=== PATIENT | male | born 1940 | race Caucasian/White ===

== ENCOUNTER 2017-10-11 17:16 | Emergency (ER) | payer OTHER ==
--- OUTSIDE RECORDS SUMMARY | 2017-10-11 17:18 | XMS REPORT | Clinical Summary ---
:1940 Author Organization [facility] Address [address] [place] [address] Care Team Providers Name Role Phone Asked, No Pcp Primary Care Provider Unavailable Allergies Not on File Current Medications Not on file Active Problems Not on file Encounters Date Type Specialty Care Team Description 12/28/2016 Hospital Encounter Radiology Leonidas Francis MD Cough 12/28/2016 Transcribe Orders Access Leonidas Francis MD Cough (Primary Dx ) after 10/10/2016 Social History Tobacco Use Types Packs/Day Years Used Date Never Assessed Sex Assigned at Date Recorded Not on file Last Filed Vital Signs Not on file Plan of Treatment Health Maintenance Due Date Last Done Comments SHINGRIX VACCINE (#1) 1989 ZOSTER VACCINE 1999 PNEUMOCOCCAL POLYSACCHARIDE VACCINE AGE 65 AND OVER 01/07/2004 PNEUMOCOCCAL-13 01/07/2004 INFLUENZA VACCINE 11/10/2017 Procedures Procedure Name Priority Date/Time Associated Diagnosis Comments CT CHEST WO Routine 12/28/2016 11:44 AM Cough Results for this CONTRAST CDT procedure are in the results section. after 10/10/[address] Chest Wo Contrast (12/28/2016 11:44 AM) Narrative Performed At EXAMINATION: RADIANT CT CHEST WO CONTRAST CLINICAL HISTORY: R05 Cough, cough TECHNIQUE: Multiple axial images of the chest were obtained without intravenous contrast. The lack of intravenous contrast reduces the sensitivity of detecting solid organ disease and evaluating vasculature. Sagittal and coronal computerized reformatted images were also obtained. COMPARISON: 11/18/2015 IMPRESSION: Patent central airways. 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 Minimal traction bronchiectasis within lung bases. No significant honeycombing. A few scattered areas of tree-in-bud nodularity may reflect small airways inflammation within the peripheral lung carty. Subtle mosaic attenuation suggests areas of mild air trapping. No consolidation. No pleural effusion or pneumothorax. Calcified granuloma within the left upper lobe. Visualized thyroid is unremarkable. No significant supraclavicular, axillary adenopathy. Mildly prominent mediastinal lymph nodes are stable. Main pulmonary artery and aorta demonstrate a normal caliber. Dense coronary artery calcifications. Patulous distal esophagus. Limited evaluation of the visualized upper abdomen is within normal limits. Osseous degenerative changes. Left humeral anchor screws. [facility]-[id number] Procedure Note Interface, Radiology Results Incoming - 12/28/2016 12:01 PM CDT EXAMINATION: CT CHEST WO CONTRAST CLINICAL HISTORY: R05 Cough, cough TECHNIQUE: Multiple axial images of the chest were obtained without intravenous contrast. The lack of intravenous contrast reduces the sensitivity of detecting solid organ disease and evaluating vasculature. Sagittal and coronal computerized reformatted images were also obtained. COMPARISON: 11/18/2015 IMPRESSION: Patent central airways. 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 Minimal traction bronchiectasis within lung bases. No significant honeycombing. A few scattered areas of tree-in-bud nodularity may reflect small airways inflammation within the peripheral lung carty. Subtle mosaic attenuation suggests areas of mild air trapping. No consolidation. No pleural effusion or pneumothorax. Calcified granuloma within the left upper lobe. Visualized thyroid is unremarkable. No significant supraclavicular, axillary adenopathy. Mildly prominent mediastinal lymph nodes are stable. Main pulmonary artery and aorta demonstrate a normal caliber. Dense coronary artery calcifications. Patulous distal esophagus. Limited evaluation of the visualized upper abdomen is within normal limits. Osseous degenerative changes. Left humeral anchor screws. [facility]-[id number] Performing Organization Address City/State/Zipcode Phone Number [facility] [address] [place] [address] after 10/10/2016 Insurance Payer Benefit Plan / Group Subscriber ID Type Phone Address AETNA MEDICARE AETNA MEDICARE HMO/PPO [facility] xxxxxxxx HMO y [phone] [id number]
[2017-10-11] MEDS ORDERED: LIDOCAINE 1% MPF 5 ML VIAL ONE (17:50)
--- NOTE | 2017-10-11 18:08 | ER ---
Nurse's Notes [facility] Name: Kartik Akhtar Age: 77 yrs Sex: Male : 1940 Arrival Date: 10/11/2017 Time: 17:19 Bed 30 Private MD: Chad Gray C Diagnosis: Laceration without foreign body of forearm Presentation: 10/11 17:19 Presenting complaint: Patient states: i was fixing the water pump and hurt my R arm, it hj happened around 4:30 pm today; it was bleeding pretty good;. Transition of care: patient was not received from another setting of care. Complicating Factors: There are no complicating factors for this patient. Onset of symptoms was October 11, 2017. Risk Assessment: Do you want to hurt yourself or someone else? Patient reports no desire to harm self or others. Initial Sepsis Screen: Does the patient meet any 2 criteria? No. Patient's initial sepsis screen is negative. Does the patient have a suspected source of infection? No. Patient's initial sepsis screen is negative. Care prior to arrival: None. 17:19 Method Of Arrival: Ambulatory 17:19 Acuity: SUPA 4 hj Triage Assessment: 17:23 General: Appears in no apparent distress. uncomfortable, Behavior is calm, cooperative, hj appropriate for age. Pain: Complains of pain in right arm. Injury Description: Laceration sustained to right antecubital area is was sustained 1-2 hours ago. is bleeding. Historical: - Allergies: 17:23 tdap vaccine; hj - Home Meds: 17:23 atorvastatin Oral [Active]; gabapentin Oral [Active]; Ofev oral oral [Active]; Esbriet hj oral oral [Active]; Fish Oil oral oral [Active]; Tricor Oral [Active]; aspirin 81 mg Oral chew 1 tab once daily [Active]; - PMHx: 17:23 High Cholesterol; neuropathy; hj - PSHx: 17:23 cataract; bilateral rotator cuffs; hj - Immunization history:: Adult Immunizations up to date. - Social history:: Smoking status: Patient/guardian denies using tobacco, Patient/guardian denies using alcohol. - Ebola Screening: : Patient negative for fever greater than or equal to 101.5 degrees Fahrenheit, and additional compatible Ebola Virus Disease symptoms Patient denies exposure to infectious person Patient denies travel to an Ebola-affected area in the 21 days before illness onset. Screenin:23 Abuse screen: Denies threats or abuse. Denies injuries from another. Nutritional hj screening: No deficits noted. Tuberculosis screening: No symptoms or risk factors identified. Fall Risk None identified. Assessment: 17:24 Musculoskeletal: Reports pain in right antecubital area. hj 17:58 General: Appears in no apparent distress. comfortable, slender, well groomed, well tl3 developed, well nourished, Behavior is calm, cooperative, appropriate for age. Pain: Denies pain. Neuro: Level of Consciousness is awake, alert, obeys commands, Oriented to person, place, time, situation, Appropriate for age. Cardiovascular: Patient's skin is warm and dry. Respiratory: Airway is patent Respiratory effort is even, unlabored, Respiratory pattern is regular, symmetrical. GI: No signs and/or symptoms were reported involving the gastrointestinal system. : No signs and/or symptoms were reported regarding the genitourinary system. EENT: No signs and/or symptoms were reported regarding the EENT system. Derm: Reports laceration to left arm. 18:41 Reassessment: Patient appears in no apparent distress at this time. No changes from tl3 previously documented assessment. Patient and/or family updated on plan of care and expected duration. Pain level reassessed. Vital Signs: 17:24 BP 119 / 89; Pulse 92; Resp 18; Temp 98.1(O); Pulse Ox 94% on R/A; Weight 63.5 kg; hj Height 5 ft. 7 in. (170.18 cm); Pain /; 18:41 BP 140 / 89; Pulse 94; Resp 18; Pulse Ox 98% ; tl3 17:24 Body Mass Index 21.93 (63.50 kg, 170.18 cm) ED Course: 17:19 Patient arrived in ED. mr 17:19 Chad Gray MD is Private Physician. mr 17:21 Triage completed. hj 17:23 Arm band placed on left wrist. hj 17:24 Patient has correct armband on for positive identification. Bed in low position. Call light in reach. Side rails up X 1. Adult w/ patient. 17:34 [facility]. jr 17:34 Peter Cerna MD is Attending Physician. jr8 17:55 Edwina Quinonez, RN is Primary Nurse. tl3 17:58 No provider procedures requiring assistance completed. Patient did not have IV access tl3 during this emergency room visit. 18:07 Chad Gray MD is Referral Physician. jr8 Administered Medications: 18:00 Drug: Lidocaine (1 %) 1 vials Volume: 20 ml; Route: Infiltration; Site: affected area; tl3 18:39 Follow up: Response: No adverse reaction; Pain is decreased tl3 Outcome: 18:07 Discharge ordered by . jr8 18:41 Discharged to home ambulatory. tl3 18:41 Condition: good 18:41 Discharge instructions given to patient, Instructed on discharge instructions, follow up and referral plans. Demonstrated understanding of instructions, follow-up care, wound care. 18:43 Patient left the ED. tl3 Signatures: Gem Elias JaydenFrancois PA PA jr8 Hardik Sanchez RN RN Edwina Quinonez, AMISHA RN tl3
--- NOTE | 2017-10-11 18:08 | EDPHYS ---
Physician Documentation [facility] Name: Kartik Akhtar Age: 77 yrs Sex: Male : 1940 Arrival Date: 10/11/2017 Time: 17:19 Bed 30 Private MD: Chad Gray C ED Physician Peter Cerna HPI: 10/11 18:04 This 77 yrs old Male presents to ER via Ambulatory with complaints of jr8 Laceration To Arm. 18:04 The patient has a laceration related to: working, occurred at home. The laceration(s) jr8 is(are) located on the right antecubital area. Onset: The symptoms/episode began/occurred acutely, today. Associated signs and symptoms: The patient has no apparent associated signs or symptoms. The patient has not experienced similar symptoms in the past. The patient has not recently seen a physician. Was putting boat engine together and cut arm on propeller . Historical: - Allergies: 17:23 tdap vaccine; hj - Home Meds: 17:23 atorvastatin Oral [Active]; gabapentin Oral [Active]; Ofev oral oral [Active]; Esbriet hj oral oral [Active]; Fish Oil oral oral [Active]; Tricor Oral [Active]; aspirin 81 mg Oral chew 1 tab once daily [Active]; - PMHx: 17:23 High Cholesterol; neuropathy; hj - PSHx: 17:23 cataract; bilateral rotator cuffs; hj - Immunization history:: Adult Immunizations up to date. - Social history:: Smoking status: Patient/guardian denies using tobacco, Patient/guardian denies using alcohol. - Ebola Screening: : Patient negative for fever greater than or equal to 101.5 degrees Fahrenheit, and additional compatible Ebola Virus Disease symptoms Patient denies exposure to infectious person Patient denies travel to an Ebola-affected area in the 21 days before illness onset. ROS: 18:04 Eyes: Negative for injury, pain, redness, and discharge, ENT: Negative for injury, jr8 pain, and discharge, Neck: Negative for injury, pain, and swelling, Cardiovascular: Negative for chest pain, palpitations, and edema, Respiratory: Negative for shortness of breath, cough, wheezing, and pleuritic chest pain, Abdomen/GI: Negative for abdominal pain, nausea, vomiting, diarrhea, and constipation, Back: Negative for injury and pain, MS/Extremity: Negative for injury and deformity, Neuro: Negative for headache, weakness, numbness, tingling, and seizure. 18:04 Skin: Positive for laceration(s), of the right antecubital area. Exam: 18:04 Eyes: Pupils equal round and reactive to light, extra-ocular motions intact. Lids and jr8 lashes normal. Conjunctiva and sclera are non-icteric and not injected. Cornea within normal limits. Periorbital areas with no swelling, redness, or edema. ENT: Nares patent. No nasal discharge, no septal abnormalities noted. Tympanic membranes are normal and external auditory canals are clear. Oropharynx with no redness, swelling, or masses, exudates, or evidence of obstruction, uvula midline. Mucous membranes moist. Neck: Trachea midline, no thyromegaly or masses palpated, and no cervical lymphadenopathy. Supple, full range of motion without nuchal rigidity, or vertebral point tenderness. No Meningismus. Cardiovascular: Regular rate and rhythm with a normal S1 and S2. No gallops, murmurs, or rubs. Normal PMI, no JVD. No pulse deficits. Respiratory: Lungs have equal breath sounds bilaterally, clear to auscultation and percussion. No rales, rhonchi or wheezes noted. No increased work of breathing, no retractions or nasal flaring. Abdomen/GI: Soft, non-tender, with normal bowel sounds. No distension or tympany. No guarding or rebound. No evidence of tenderness throughout. Back: No spinal tenderness. No costovertebral tenderness. Full range of motion. MS/ Extremity: Pulses equal, no cyanosis. Neurovascular intact. Full, normal range of motion. Neuro: Awake and alert, GCS 15, oriented to person, place, time, and situation. Cranial nerves II-XII grossly intact. Motor strength 5/5 in all extremities. Sensory grossly intact. Cerebellar exam normal. Normal gait. 18:04 Skin: injury, laceration(s), the wound is approximately 3 cm(s), with a depth of .5 cm(s), of the right antecubital area, that can be described as no foreign body, linear, without bleeding. Vital Signs: 17:24 BP 119 / 89; Pulse 92; Resp 18; Temp 98.1(O); Pulse Ox 94% on R/A; Weight 63.5 kg; hj Height 5 ft. 7 in. (170.18 cm); Pain 1/10; 18:41 BP 140 / 89; Pulse 94; Resp 18; Pulse Ox 98% ; tl3 17:24 Body Mass Index 21.93 (63.50 kg, 170.18 cm) hj Laceration: 18:04 Wound Repair of 3cm ( 1.2in ) subcutaneous laceration to right antecubital area. Linear jr8 shaped.. Distal neuro/vascular/tendon intact. Anesthesia: Local anesthetic administered with 3 mls of 1% lidocaine. Wound prep: Extensive cleansing with betadine, Wound irrigation with saline, Wound explored extensively. Skin closed with 6 4-0 Prolene using interrupted sutures and sterile technique. Patient tolerated well. MDM: 17:34 Patient medically screened. jr8 18:04 Data reviewed: vital signs, nurses notes, and as a result, I will discharge patient. jr8 Data interpreted: Pulse oximetry: on room air is 94 %. Interpretation: normal. Counseling: I had a detailed discussion with the patient and/or guardian regarding: the historical points, exam findings, and any diagnostic results supporting the discharge/admit diagnosis, the need for outpatient follow up, a family practitioner, to return to the emergency department if symptoms worsen or persist or if there are any questions or concerns that arise at home. ED course: Patient allergic to tetanus shot. 10/11 17:50 Order name: Prolene, Sutures; Complete Time: 18:41 8 10/11 17:50 Order name: Dressing - Wound; Complete Time: 18:41 8 10/11 17:50 Order name: Gloves, Sterile; Complete Time: 18:41 8 10/11 17:50 Order name: Setup Suture Tray; Complete Time: 18:41 jr8 Administered Medications: 18:00 Drug: Lidocaine (1 %) 1 vials Volume: 20 ml; Route: Infiltration; Site: affected area; tl3 18:39 Follow up: Response: No adverse reaction; Pain is decreased tl3 Disposition: 10/12 15:57 Co-signature as Attending Physician, Peter Cerna MD Available for consultation at ps1 all times.. Disposition: 10/11/17 18:07 Discharged to Home. Impression: Laceration without foreign body of forearm. - Condition is Stable. - Discharge Instructions: Laceration Care, Adult. - Medication Reconciliation Form, Thank You Letter, Antibiotic Education, Prescription Opioid Use form. - Follow up: Chad Gray MD; When: 1 week; Reason: Wound Recheck, Recheck today's complaints, Continuance of care, Staple/Suture removal, Re-evaluation by your physician. - Problem is new. - Symptoms have improved. Signatures: Francois Carpenter PA PA jr8 Hardik Sanchez RN RN Peter Cerna MD MD [facility] Edwina Quinonez RN RN tl3 Corrections: (The following items were deleted from the chart) 10/11 18:43 18:07 10/11/2017 18:07 Discharged to Home. Impression: Laceration without foreign body tl3 of forearm. Condition is Stable. Forms are Medication Reconciliation Form, Thank You Letter, Antibiotic Education, Prescription Opioid Use. Follow up: Chad Gray; When: 1 week; Reason: Wound Recheck, Recheck today's complaints, Continuance of care, Staple/Suture removal, Re-evaluation by your physician. Problem is new. Symptoms have improved. jr8
== END 2017-10-11 18:43 | disposition home or self-care (01) ==
LOC: ER 17:16
PROC: 0JQG0ZZ Repair Right Lower Arm Subcutaneous Tissue and Fascia, Open Approach (ICD-10-PCS; principal; 2017-10-11)
DX: S51.811A Laceration without foreign body of right forearm, initial encounter (principal); W26.8XXA Contact with other sharp object(s), not elsewhere classified, initial encounter; Y93.89 Activity, other specified; Y92.008 Other place in unspecified non-institutional (private) residence as the place of occurrence of the external cause; Z79.82 Long term (current) use of aspirin; Z88.7 Allergy status to serum and vaccine; E78.00 Pure hypercholesterolemia, unspecified
CPT/HCPCS: 99283

== ENCOUNTER 2021-01-25 13:38 | Emergency (ER) | payer OTHER ==
[2021-01-25] MEDS ORDERED: LIDOCAINE 1% MPF 30 ML VIAL ONE (15:22)
--- NOTE | 2021-01-25 16:10 | EDPHYS ---
Physician Documentation [facility] Name: Kartik Akhtar Age: 81 yrs Sex: Male : 1940 Arrival Date: 01/25/2021 Time: 13:39 Bed 28 Private MD: ED Physician Nayan Santos HPI: 01/25 17:35 This 81 yrs old Male presents to ER via Ambulatory with complaints of jmm Laceration To Arm. 17:35 The patient has a laceration related to: falling. Onset: The symptoms/episode jmm began/occurred acutely, just prior to arrival. This is an 81-year-old male with a history of hyperlipidemia that presents emerged part with complaints of a laceration to the left arm which occurred while he was pressure washing. Patient states he fell landing on his back. Denies hitting his head. Denies loss consciousness.. Historical: - Allergies: 13:57 tdap vaccine; lp1 - Home Meds: 13:57 Ofev 150 mg oral cap every 12 hours [Active]; Esbriet 801 mg oral tab 3 times per day lp1 [Active]; prednisone 20 mg Oral tab once daily [Active]; fenofibrate nanocrystallized 145 mg oral tab 1 tab once daily [Active]; aspirin 81 mg Oral chew 1 tab once daily [Active]; - PMHx: 13:57 High Cholesterol; neuropathy; lp1 - Immunization history:: Adult Immunizations up to date. - Social history:: Smoking status: Patient denies any tobacco usage or history of. ROS: 17:35 Constitutional: Negative for fever, chills, and weight loss, Cardiovascular: Negative jmm for chest pain, palpitations, and edema, Respiratory: Negative for shortness of breath, cough, wheezing, and pleuritic chest pain. 17:35 MS/extremity: Positive for injury or acute deformity, laceration. 17:35 All other systems are negative. Exam: 17:35 Constitutional: This is a well developed, well nourished patient who is awake, alert, jmm and in no acute distress. Head/Face: atraumatic. Eyes: EOMI, no conjunctival erythema appreciated ENT: Moist Mucus Membranes Neck: Trachea midline, Supple Chest/axilla: Normal chest wall appearance and motion. Cardiovascular: Regular rate and rhythm. No edema appreciated Respiratory: Normal respirations, no respiratory distress appreciated Abdomen/GI: Non distended, soft Back: Normal ROM 17:35 Musculoskeletal/extremity: No bony tenderness noted to the left forearm, compartments are soft, large hematoma noted coming from the area of the laceration, a small arterial appreciated, full radial pulse. 17:35 Skin: 6 cm laceration noted to the left forearm. 17:35 Neuro: Orientation: is normal, Mentation: is normal, Memory: is normal. 17:35 Psych: Behavior/mood is pleasant, cooperative. Vital Signs: 13:53 BP 117 / 65; Pulse 99; Resp 18; Temp 97.5; Pulse Ox 95% on R/A; Weight 63.5 kg (R); lp1 Height 5 ft. 6 in. (167.64 cm); Pain 4/10; 13:53 Body Mass Index 22.60 (63.50 kg, 167.64 cm) lp1 Laceration: 16:14 Wound Repair of 5cm ( 2.0in ) subcutaneous laceration to dorsal aspect of left forearm. jmm Distal neuro/vascular/tendon intact. Anesthesia: Local anesthetic administered with 5 mls of 1% lidocaine. Wound prep: Simple cleansing with betadine by me. Skin closed with 8 2-0 Prolene using simple sutures and sterile technique. Patient tolerated well. MDM: 13:55 Patient medically screened. [facility] 16:09 Data reviewed: vital signs, nurses notes. kavitha 16:14 Data reviewed:. Counseling: I had a detailed discussion with the patient and/or jmm guardian regarding: the historical points, exam findings, and any diagnostic results supporting the discharge/admit diagnosis, the need for outpatient follow up, to return to the emergency department if symptoms worsen or persist or if there are any questions or concerns that arise at home. Administered Medications: 15:10 Drug: Lidocaine (1 %) 20 ml {Note: administered to left FA by PA for laceration repair. aa5 .} Volume: 20 ml; Route: Infiltration; Disposition: 01/26 16:17 Co-signature as Attending Physician, Nayan Santos MD I agree with the assessment and [facility] plan of care. Disposition Summary: 01/25/21 16:17 Discharge Ordered Location: Home(01/25/21 16:17) juan Condition: Stable(01/25/21 16:17) juan Diagnosis - Forearm Laceration [facility] Followup: [facility] - With: Private Physician - When: 7 - 10 days - Reason: Recheck today's complaints, Continuance of care, Staple/Suture removal, Re-evaluation by your physician Discharge Instructions: - Discharge Summary Sheet [facility] - Laceration Care, Adult [facility] Forms: - Medication Reconciliation Form [facility] - Thank You Letter [facility] - Antibiotic Education [facility] - Prescription Opioid Use [facility] Prescriptions: - Doxycycline Hyclate 100 mg Oral Tablet - take 1 tablet by ORAL route every 12 hours; 20 tablet; Refills: 0, Product [facility] Selection Permitted Signatures: Nayan Santos MD MD cha Mickail, Joel, PA PA jm Chantal Campo, RN RN aa5 Allison Vines, RN RN lp1 Corrections: (The following items were deleted from the chart) 01/25 16:11 16:09 Home [facility] 16:11 16:09 Stable [facility] 16:11 16:09 UTI/ Urinary tract infection, site not specified [facility] 16:17 16:09 Counseling: I had a detailed discussion with the patient and/or guardian kavitha regarding: the historical points, exam findings, and any diagnostic results supporting the discharge/admit diagnosis, lab results, radiology results, the need for outpatient follow up, to return to the emergency department if symptoms worsen or persist or if there are any questions or concerns that arise at home, kavitha 16:17 16:09 Refusal of service: The patient/guardian displays adequate decision making [facility] capability and despite a detailed discussion of alternatives, benefits, risks, and consequences refuses: Admission to the hospital for further work-up and treatment, [facility]
--- NOTE | 2021-01-25 16:10 | ER ---
Nurse's Notes [facility] Name: Kartik Akhtar Age: 81 yrs Sex: Male : 1940 Arrival Date: 01/25/2021 Time: 13:39 Bed 28 Private MD: Diagnosis: Forearm Laceration Presentation: 01/25 13:53 Chief complaint: Patient states: Patient was powerwashing home when he tripped over [facility] cord, falling backward onto grass; Denies hitting head, No LOC; large laceration to left forearm, with hematoma. Coronavirus screen: At this time, the client does not indicate any symptoms associated with coronavirus-19. Ebola Screen: No symptoms or risks identified at this time. Complicating Factors: There are no complicating factors for this patient. Initial Sepsis Screen: Does the patient meet any 2 criteria? No. Patient's initial sepsis screen is negative. Does the patient have a suspected source of infection? No. Patient's initial sepsis screen is negative. Risk Assessment: Do you want to hurt yourself or someone else? Patient reports no desire to harm self or others. Onset of symptoms was January 25, 2021. 13:53 Method Of Arrival: Ambulatory lp1 13:53 Acuity: SUPA 3 lp1 Historical: - Allergies: 13:57 tdap vaccine; lp1 - Home Meds: 13:57 Ofev 150 mg oral cap every 12 hours [Active]; Esbriet 801 mg oral tab 3 times per day lp1 [Active]; prednisone 20 mg Oral tab once daily [Active]; fenofibrate nanocrystallized 145 mg oral tab 1 tab once daily [Active]; aspirin 81 mg Oral chew 1 tab once daily [Active]; - PMHx: 13:57 High Cholesterol; neuropathy; lp1 - Immunization history:: Adult Immunizations up to date. - Social history:: Smoking status: Patient denies any tobacco usage or history of. Screenin:59 Abuse screen: Denies threats or abuse. Denies injuries from another. Nutritional lp1 screening: No deficits noted. Tuberculosis screening: No symptoms or risk factors identified. Fall Risk None identified. Assessment: 13:58 General: Appears in no apparent distress. Behavior is appropriate for age. Pain: lp1 Complains of pain in left arm Pain currently is 4 out of 10 on a pain scale. Quality of pain is described as aching. Neuro: Level of Consciousness is awake, alert, obeys commands, Oriented to person, place, time, situation, Gait is steady, Intact. Cardiovascular: Patient's skin is warm and dry. Respiratory: Respiratory effort is even, unlabored. GI: No signs and/or symptoms were reported involving the gastrointestinal system. : No signs and/or symptoms were reported regarding the genitourinary system. EENT: No signs and/or symptoms were reported regarding the EENT system. Derm: Wound noted palmar aspect of left forearm. Musculoskeletal: Circulation, motion, and sensation intact. Range of motion: intact in all extremities. Injury Description: Laceration is jagged, 7.6 to 20 cm long, large hematoma to site. 15:30 Reassessment: Patient is alert, oriented x 3, equal unlabored respirations, skin aa5 warm/dry/pink. Pressure dressing in place, will monitor later per PA VO. . 16:00 Reassessment: Checked laceration to left FA per PA. Bleeding was noted to be aa5 controlled, redressed with non-adherent dressing, gauze, and SIMÓN bandage per PA. PA was notified of findings.. 16:00 Reassessment: Patient is alert, oriented x 3, equal unlabored respirations, skin aa5 warm/dry/pink. 16:20 Reassessment: Patient is alert, oriented x 3, equal unlabored respirations, skin aa5 warm/dry/pink. Vital Signs: 13:53 BP 117 / 65; Pulse 99; Resp 18; Temp 97.5; Pulse Ox 95% on R/A; Weight 63.5 kg (R); lp1 Height 5 ft. 6 in. (167.64 cm); Pain 4/10; 13:53 Body Mass Index 22.60 (63.50 kg, 167.64 cm) lp1 ED Course: 13:39 Patient arrived in ED. as 13:53 Allison Vines, AMISHA is Primary Nurse. lp1 13:55 Maverick Turcios PA is PHCP. [facility] 13:55 Nayan Santos MD is Attending Physician. [facility] 13:56 Triage completed. lp1 13:56 Arm band placed on right wrist. lp1 13:59 Patient has correct armband on for positive identification. lp1 15:30 Assist provider with laceration repair on dorsal aspect of left forearm that was aa5 between 7.6 to 12.5 cm using sutures. Set up tray. Performed by Maverick GOMES Patient tolerated well. Moderate bleeding noted to laceration. Pressure dressing applied per PA with non-adherent dressing, gauze, and simón bandage to left FA. Started at 1510 and completed at 1530. 16:20 Patient did not have IV access during this emergency room visit. aa5 Administered Medications: 15:10 Drug: Lidocaine (1 %) 20 ml {Note: administered to left FA by PA for laceration repair. aa5 .} Volume: 20 ml; Route: Infiltration; Outcome: 16:17 Discharge ordered by MD. martinez 16:20 Discharged to home ambulatory, with family. aa5 16:20 Condition: stable 16:20 Discharge instructions given to patient, family, Instructed on discharge instructions, follow up and referral plans. medication usage, wound care, Demonstrated understanding of instructions, follow-up care, medications, wound care, Prescriptions given X 1. 16:23 Patient left the ED. aa5 Signatures: Maverick Turcios PA PA jmm Martinez, Amelia as Calderon, Audri, RN RN aa5 Allison Vines, RN RN lp1 Corrections: (The following items were deleted from the chart) 16:26 16:09 Discharge ordered by MD. martinez aa5
[2021-01-25 16:28] VITALS: BP 117/65; TEMP 97.5; O2SAT 95
== END 2021-01-25 16:23 | disposition home or self-care (01) ==
LOC: ER 13:38
PROC: 0JQH0ZZ Repair Left Lower Arm Subcutaneous Tissue and Fascia, Open Approach (ICD-10-PCS; principal; 2021-01-25)
DX: S51.812A Laceration without foreign body of left forearm, initial encounter (principal); W31.89XA Contact with other specified machinery, initial encounter; Z88.7 Allergy status to serum and vaccine; Z79.82 Long term (current) use of aspirin; E78.00 Pure hypercholesterolemia, unspecified
CPT/HCPCS: 99283